=== PATIENT | male | born 1945 | race Caucasian/White ===

== ENCOUNTER 2022-05-08 14:02 | Emergency (ER) | payer MEDICARE, MEDICAID, SELFPAY ==
[2022-05-08 14:16] VITALS: BP 138/78; PULSE 118; RESP 18; TEMP 37.3; O2SAT 96
--- NOTE | 2022-05-08 14:47 | ED.GENADUL_ITS ---
Discharge Plan Disposition Patient Disposition: HOME Condition: Improving Discharge Details Clinical Impression: Lumbar strain Primary Care Provider: Michael Thibodeaux ED Provider: Preethi Serrano Home Meds and New Rx's Prescriptions: New methocarbamol 500 mg tablet 500 mg PO Q6H PRN (Reason: muscle spasm) Qty: 14 0RF prednisone 20 mg tablet See Rx Instructions .ROUTE .COMPLEX Qty: 18 0RF Rx Instructions: Take 3 tabs daily for 3 days, then 2 tabs daily for 3 days, then 1 tab daily for 3 days. Continued atorvastatin 10 mg tablet 1 tab PO DAILY Label Comments: TAKE ONE TABLET BY MOUTH EVERY DAY metoprolol tartrate 50 mg tablet 1 tab PO BID Label Comments: TAKE ONE TABLET BY MOUTH TWICE A DAY Eliquis 5 mg tablet 1 tab PO BID Label Comments: TAKE ONE TABLET BY MOUTH TWICE A DAY Discharge Instructions Instructions: Low Back Strain (ED) Additional Instructions: Your imaging today is reassuring and shows no evidence of acute concerning or significant findings. Your symptoms may be due to a muscle strain in your back. Alternate ice and heat to the affected area(s) several times daily for 20 minutes at a time. Take Tylenol every 4 hours as needed and directed for pain. Do not take NSAIDs such as motrin, ibuprofen, aleve or advil as these are contraindicated with your Eliquis due to increased risk of bleeding. Prescriptions for muscle relaxers and steroids have been sent electronically to your pharmacy. Take the oxycodone for pain not relieved with Tylenol or muscle relaxers. You have been placed on care management's list to arrange for a follow-up appointment with a primary care doctor to establish care and for re-evaluation. Return immediately to the emergency department if you develop any worsening or new concerning symptoms. Discharge Data Discharge Date/Time-TO BE ENTERED AT DEPARTURE: 05/08/22 17:21 Discharge Physician: Preethi Serrano Medical Decision Making 76yo male with a history of atrial fibrillation on Eliquis presents with right- sided lower back pain with radiation into his right buttock and right hip for the past 11 days after mechanical fall when he tripped over a vacuum commercial cleaner. States he also hit his right knee but denies any pain in this area. Patient appears uncomfortable but nontoxic. He has reproducible tenderness with range of motion but no evidence of overlying cellulitis, trauma or rash. He has no focal deficits and is neurovascularly intact. He denies cauda equina symptoms, fever or urinary symptoms so history and presentation does not appear consistent with cauda equina syndrome, epidural abscess or kidney stone. Considering patient's age and level of pain, will obtain imaging to rule out fracture versus disc herniation although discussed that MRI is the gold standard to rule out neurologic injury. Will give a dose of oral prednisone, Valium and oxycodone and reassess. Imaging reviewed and negative for acute findings. Patient reassessed and his pain is significantly improved and he feels comfortable going home. Prescriptions for steroids and muscle relaxers sent electronically to his pharmacy. He was given oxycodone to go for breakthrough pain. Advised to follow-up with the primary care doctor for reevaluation and for referral for physical therapy or MRI imaging if indicated. Usual and customary return precautions given prior to discharge. Medical Records Medical records reviewed: Yes I reviewed the patient's medical records. Imaging Data Radiologic Study: Radiologist's impression: CT LUMBAR SPINE WO CLINICAL HISTORY:? s/p fall, r/o acute fracture/disc herniation. ? TECHNIQUE:? Imaging Protocol: Axial computed tomography images with coronal and sagittal reformatted images were created and reviewed COMPARISON:? No exams were available for comparison? FINDINGS: Bones:? There are no fractures, listhesis, nor pars defects. There are no lytic osseous lesions evident.There is multilevel central spinal canal stenosis, most prominent at L4-5 level.? This is related to annular bulging, short AP dimension s of the pedicles and degenerative facet arthropathy at multiple levels. PARASPINAL SOFT TISSUES: There is a benign cyst in the left kidney noted.? Measures 4 cm.? No hematomas. IMPRESSION: 1. No acute lumbar spine fractures nor listhesis. 2. Multilevel spinal canal stenosis, most prominent at L4-5 level, as described above. CT PELVIC WO CLINICAL HISTORY: ? s/p fall, r/o acute fracture. ? TECHNIQUE:? Imaging Protocol: Axial computed tomography images with coronal and sagittal reformatted images were created and reviewed CONTRAST MATERIAL:? Intravenous: none Oral: None COMPARISON:? No exams were available for comparison FINDING:? PELVIS:? OSSEOUS: No pelvic nor hip fractures evident.Moderate degenerative changes in both hips. ANTERIOR ABDOMINAL WALL/GI:No evidence of significant anterior abdominal wall nor inguinal hernia in the pelvis evident.No obvious bowel obstruction.? No evidence of appendicitis.No evidence of acute sigmoid diverticulitis.No free fluid in the pelvis. LYMPH NODES: There is no intrapelvic nor inguinal adenopathy. URINARY BLADDER: No calculi nor obvious masses evident REPRODUCTIVE: Prostate gland mildly enlarged.? Seminal vesicles unremarkable..? IMPRESSION: 1. No pelvic nor hip fractures evident.? There are moderate degenerative changes evident in both hips. HPI General Mode of arrival: ambulatory . Date/Time Provider Initiated Documentation: 05/08/22 14:30 . Limitations to Documentation: no limitations . Information obtained by: patient . HPI Narrative: Patient is a 76-year-old male presents with right-sided lower back pain for the past 11 days after mechanical fall at home. Patient states he was walking quickly in the house when he tripped over a vacuum commercial cleaner and outstretched his right leg causing pain in his right knee and right lower back. He states since then his right knee pain has improved but has had worsening right lower back pain. He states the pain radiates from his right mid back down into his right buttock and right hip. He has taken Tylenol for pain without relief. He denies any bowel or bladder incontinence, saddle anesthesia or leg weakness or numbness. Related Data Home Medications Medication Instructions Recorded Confirmed apixaban 5 mg tablet (Eliquis) 1 tab PO BID 05/08/22 05/08/22 atorvastatin 10 mg tablet 1 tab PO DAILY 05/08/22 05/08/22 methocarbamol 500 mg tablet 500 mg PO Q6H PRN muscle spasm #14 05/08/22 tabs metoprolol tartrate 50 mg tablet 1 tab PO BID 05/08/22 05/08/22 prednisone 20 mg tablet See Rx Instructions .Route 05/08/22 .COMPLEX #18 tabs Previous Rx's Medication Instructions Recorded methocarbamol 500 mg tablet 500 mg PO Q6H PRN muscle spasm #14 05/08/22 tabs prednisone 20 mg tablet See Rx Instructions .Route 05/08/22 .COMPLEX #18 tabs Allergies Allergy/AdvReac Type Severity Reaction Status Date / Time No Known Allergies Allergy Unverified 05/08/22 14:20 General Stated Complaint: Nk/Back Pain GARY: 4 Review of Systems All systems reviewed & are unremarkable except as noted in HPI and below Constitutional Constitutional: Denies chills, Denies excessive sweating, Denies fatigue, Denies fever(s), Denies weakness and Denies weight loss Eyes Eyes: Reports system reviewed and no additional complaints, except as documented and Denies blurry vision ENT Ears, Nose, Mouth, and Throat: Denies vertigo, Denies dizziness, Denies otalgia, Denies nasal congestion, Denies sore throat and Denies throat swelling Cardiovascular Cardiovascular: Denies chest pain, Denies syncope, Denies rapid heart rate and Denies dyspnea Respiratory Respiratory: Denies chest congestion, Denies cough, Denies pain on inspiration and Denies dyspnea Gastrointestinal Gastrointestinal: Denies abdominal pain, Denies diarrhea and Denies vomiting Genitourinary Genitourinary: Denies hematuria, Denies dysuria and Denies flank pain Musculoskeletal Musculoskeletal: Reports back pain and Denies joint swelling Integumentary/Breasts Skin/Breast: Denies lesions and Denies rash Neurologic Neurologic: Denies behavioral changes, Denies confusion, Denies vertigo, Denies dizziness, Denies syncope, Denies localized weakness and Denies weakness Psychiatric Psychiatric: Denies behavioral changes, Denies confusion and Denies depression Endocrine Endocrine: Denies excessive sweating and Denies fatigue Hematologic/Lymphatic Hematologic/Lymphatic: Denies easy bruising and Denies lymphadenopathy Allergic/Immunologic Allergic/Immunologic: Denies throat swelling PFSH All Active Problems (Updated 05/08/22 @ 17:01 by Preethi Serrano DO) Lumbar strain (Acute) Medical History (Updated 05/08/22 @ 17:01 by Preethi Serrano DO) Atrial fibrillation Surgical History (Updated 05/08/22 @ 15:30 by Preethi Serrano DO) No significant past surgical history Social History Smoking/Tobacco Use Status: Never Smoking risk assessment performed?: Yes Alcohol Intake: never Drug use: Never Substance use type: does not use Do you feel safe at home: Yes Do you feel safe in your relationship?: Yes Exam Const General: cooperative Orientation: alert, awake and oriented x3 HENMT Head: normal to inspection Ears: hearing grossly normal bilaterally and external ears normal General nose exam: external nose normal Face and sinus: normal facial exam Mouth: oral mucosae normal Eyes General: appearance normal, both eyes and all related structures Eyelids: eyelids normal EOM: EOM intact bilaterally Neck Neck: normal visual inspection Lymphatic: no lymphadenopathy noted Chest Chest: normal inspection of the chest Resp Effort & Inspection: normal respiratory effort and able to speak in complete sentences Cardio Rate: tachycardic GI Inspection: normal to inspection Palpation: soft, not firm, no guarding, no hepatosplenomegaly, no masses and nontender Auscultation: normal bowel sounds Back/Spine/Pelvis Thoracic/Lumbar Spine: thoracic and lumbar spine normal to inspection, No paraspinal tenderness, No thoracic spinal tenderness and No lumbar spinal tenderness Skin General skin exam: no rashes or lesions noted Neuro General: patient alert, patient awake, moves all extremities, no meningeal signs and no focal motor deficits Cognition: normal cognition Speech: speech normal Gait: normal gait Motor: muscle tone normal throughout and strength 5/5 throughout Sensory Exam: no sensory deficits noted DTR's: Rt Patellar: 2+, Lt Patellar: 2+, Rt Ankle: 2+ and Lt Ankle: 2+ Plantar Reflexes: Equivocal: bilateral (negative babinski b/l ) Extrem General: normal to inspection, full ROM and capillary refill normal Other: B/L DP/PT pulses intact. Psych Appearance: grossly normal Mental Status: mental status grossly normal Speech and Movement: speech and movement normal Affect: normal affect Thought Process: normal Course Vital Signs Vital signs: Vital Signs Temperature 99.1 F 05/08/22 14:16 Pulse 118 H 05/08/22 14:16 Respiratory Rate 18 05/08/22 14:16 Blood Pressure 138/78 05/08/22 14:16 Pulse Oximetry 96 05/08/22 14:16 Temperature 99.1 F 05/08/22 14:16 Temperature Source Temporal Artery Scan 05/08/22 14:16 Pulse 118 H 05/08/22 14:16 Respiratory Rate 18 05/08/22 14:16 Respiratory Effort Non-Labored 05/08/22 14:21 Blood Pressure 138/78 05/08/22 14:16 Blood Pressure Position Sitting 05/08/22 14:16 Pulse Oximetry 96 05/08/22 14:16 Oxygen Delivery Method Room Air 05/08/22 14:16 Oxygen Flow Rate 0 05/08/22 14:16
--- NOTE | 2022-05-08 15:15 | DI.CT_ITS ---
Exam(s) CT LUMBAR SPINE WO EXAM: CT LUMBAR SPINE WO CLINICAL HISTORY: s/p fall, r/o acute fracture/disc herniation. TECHNIQUE: Imaging Protocol: Axial computed tomography images with coronal and sagittal reformatted images were created and reviewed COMPARISON: No exams were available for comparison FINDINGS: Bones: There are no fractures, listhesis, nor pars defects. There are no lytic osseous lesions evide nt.There is multilevel central spinal canal stenosis, most prominent at L4-5 level. This is related to annular bulging, short AP dimensions of the pedicles and degenerative facet arthropathy at multipl e levels. PARASPINAL SOFT TISSUES: There is a benign cyst in the left kidney noted. Measures 4 cm. No hematom as. IMPRESSION: 1. No acute lumbar spine fractures nor listhesis. 2. Multilevel spinal canal stenosis, most prominent at L4-5 level, as described above. 3. RADIATION DOSE DELIVERED: 634.98mGy.cm Total DLP DATA REPOSITORY: All CT scans at this facility are submitted to the National Radiology Data Registry (NRDR) Dose Index Registry (DIR) with the [employer] ([employer]). RADIATION OPTIMIZATION: All CT scans at this facility use at least one of these dose optimization te chniques: automated exposure control; mA and/or kV adjustment per patient size (includes targeted exa ms where dose is matched to clinical indication); or iterative reconstruction.
--- NOTE | 2022-05-08 15:15 | DI.CT_ITS ---
Exam(s) CT PELVIC WO EXAM: CT PELVIC WO CLINICAL HISTORY: s/p fall, r/o acute fracture. TECHNIQUE: Imaging Protocol: Axial computed tomography images with coronal and sagittal reformatted images were created and reviewed CONTRAST MATERIAL: Intravenous: none Oral: None COMPARISON: No exams were available for comparison FINDING: PELVIS: OSSEOUS: No pelvic nor hip fractures evident.Moderate degenerative changes in both hips. ANTERIOR ABDOMINAL WALL/GI:No evidence of significant anterior abdominal wall nor inguinal hernia in the pelvis evident.No obvious bowel obstruction. No evidence of appendicitis.No evidence of acute si gmoid diverticulitis.No free fluid in the pelvis. LYMPH NODES: There is no intrapelvic nor inguinal adenopathy. URINARY BLADDER: No calculi nor obvious masses evident REPRODUCTIVE: Prostate gland mildly enlarged. Seminal vesicles unremarkable.. IMPRESSION: 1. No pelvic nor hip fractures evident. There are moderate degenerative changes evident in both hips . 2. 3. RADIATION DOSE DELIVERED: 489.68mGy.cm Total DLP DATA REPOSITORY: All CT scans at this facility are submitted to the National Radiology Data Registry (NRDR) Dose Index Registry (DIR) with the [employer] (ACR). RADIATION OPTIMIZATION: All CT scans at this facility use at least one of these dose optimization te chniques: automated exposure control; mA and/or kV adjustment per patient size (includes targeted exa ms where dose is matched to clinical indication); or iterative reconstruction.
[2022-05-08] MEDS: diazePAM 5 MG TAB PO (15:40)
[2022-05-08] MEDS: predniSONE 20 MG TAB 60 MG PO (15:40)
[2022-05-08] MEDS: oxyCODONE 5 MG TAB PO (15:40)
--- NOTE | 2022-05-08 17:06 | NUR.NOTE ---
Nursing Note: PT INFO GIVEN TO CARE MANAGEMENT TO ESTABLISH CARE AND TO FOLLOW UP NEXT WEEK. KARTIK, ED
[2022-05-08 17:20] VITALS: PULSE 83; RESP 16; O2SAT 97
== END 2022-05-08 17:21 | disposition home or self-care (01) ==
PROVIDERS: Emergency Provider Physician Assistant; PCP Family Medicine
DX: S39.012A Strain of muscle, fascia and tendon of lower back, initial encounter (principal); W18.09XA Striking against other object with subsequent fall, initial encounter
CPT/HCPCS: 99284; 72131; 72192; 99283; J7512

== ENCOUNTER 2023-01-01 10:06 | Outpatient (CLI) | payer MEDICARE, MEDICAID, SELFPAY | END 2023-01-01 10:07 | disposition home or self-care (01) | PROVIDERS: PCP Student in an Organized Health Care Education/Training Program; Visit Provider Student in an Organized Health Care Education/Training Program | DX: I48.91 Unspecified atrial fibrillation (principal) | CPT/HCPCS: 93246 ==

== ENCOUNTER 2023-01-26 09:03 | Outpatient (CLI) | payer MEDICARE, MEDICAID, SELFPAY ==
--- NOTE | 2023-01-26 09:22 | W.CARDEVENT ---
Date of service: 01/26/23 Time of Service: 09:22 Cardiac Event Recorder Referring Provider:: Arti Paiz Indications:: Atrial fibrillation Cardiac Event Note: This is a 14-day cardiac event monitor ordered for atrial fibrillation atrial fibrillation was present throughout with an average heart rate of 72. Minimum was 45, maximum 111 There were very rare ventricular ectopic beats No patient symptoms were reported
== END 2023-01-26 09:04 | disposition home or self-care (01) ==
LOC: CARDOPNVT 09:03
PROVIDERS: PCP Student in an Organized Health Care Education/Training Program; Visit Provider Internal Medicine Cardiovascular Disease
DX: I48.91 Unspecified atrial fibrillation (principal)
CPT/HCPCS: 93248

== ENCOUNTER 2023-01-26 09:24 | Outpatient (CLI) | payer MEDICARE, MEDICAID, SELFPAY ==
--- NOTE | 2023-01-26 09:15 | RT.EKG_ITS ---
APPROVED REPORT Exam: Resting ECG Reason for Exam: afib Patient Location: O HR:66 bpm ECG Measurements Heart Rate 66 AXIS SC [id number] P [id number] QRSd 104 QRS 41 QT 421 T 48 QTc 442 Conclusion Atrial fibrillation...V-rate 46- 82, irreg A-activity
== END 2023-01-26 09:25 | disposition home or self-care (01) ==
LOC: DI.CARD 09:25
PROVIDERS: PCP Student in an Organized Health Care Education/Training Program; Visit Provider Internal Medicine Cardiovascular Disease
DX: I48.91 Unspecified atrial fibrillation (principal)
CPT/HCPCS: 93010

== ENCOUNTER → 2023-01-26 11:09 | Outpatient (BNVA) | payer MEDICARE, MEDICAID, SELFPAY | PROVIDERS: PCP Student in an Organized Health Care Education/Training Program; Referring Provider Student in an Organized Health Care Education/Training Program; Visit Provider Internal Medicine Cardiovascular Disease | DX: Z79.01 Long term (current) use of anticoagulants (principal); I10 Essential (primary) hypertension; I48.91 Unspecified atrial fibrillation | CPT/HCPCS: 93005; 99202; 99213 ==

== ENCOUNTER 2024-01-01 02:58 | Outpatient (CLI) | payer MEDICARE, MEDICAID, SELFPAY ==
[2024-01-01 11:33] LABS: Anion Gap 8.6 mmol/L (3-11); BUN 18 mg/dL (7-18); CO2 30.4 mmol/L (21.0-32.0); CREATININE 1.3 mg/dL (0.70-1.30); Calcium 9.1 mg/dL (8.5-10.1); Calculated LDL 46 mg/dL (<100); Chloride 102 mmol/L (98-107); Cholesterol 112 mg/dL (<200); Estimated GFR 56.23 (mL/min/1.73m2); Glucose 199 mg/dL (74-106); HDL Cholesterol 52 mg/dL (40-60); Potassium 3.8 mmol/L (3.5-5.1); Sodium 141 mmol/L (136-145); Triglyceride 70 mg/dL (<150)
== END 2024-01-01 02:59 | disposition home or self-care (01) ==
LOC: LBO 02:59
PROVIDERS: PCP Student in an Organized Health Care Education/Training Program; Referring Provider Student in an Organized Health Care Education/Training Program; Visit Provider Student in an Organized Health Care Education/Training Program
DX: E78.5 Hyperlipidemia, unspecified; I67.9 Cerebrovascular disease, unspecified; I10 Essential (primary) hypertension
CPT/HCPCS: 36415; 80048; 80061

== ENCOUNTER → 2024-01-06 00:55 | Outpatient (CLI) | payer MEDICARE, MEDICAID, SELFPAY ==
--- NOTE | 2024-01-06 08:15 | DI.US_ITS ---
Exam(s) US THYROID EXAM: US THYROID CLINICAL HISTORY: 3.5 x 3.4 x 3.1 cm TR 5 lesion, assess for changelt thyroid nodule,e04.1. TECHNIQUE: Ultrasound thyroid performed using standard protocol. COMPARISON: US US THYROID/NECK from 03/09/2023 a [facility] FINDINGS: ISTHMUS: mm RIGHT LOBE: Size: 4.0 x 1.6 x 1.5 cm Echogenicity: Normal. Vascularity: Normal. Nodules: None. LEFT LOBE: Size: 5.6 x 3.2 x 3.1 cm Echogenicity: Normal. Vascularity: Normal. Nodules: 3.5 x 2.6 x 3.0 centimeter solid mildly hyperechoic, ill-defined margins, taller than wide w ith punctate echogenic foci, TR 5. Nodules measuring smaller than on the prior exam however this is l ikely secondary to measurement error. OTHER FINDINGS: None. IMPRESSION: Stable size and appearance left thyroid nodule. TR 5. DATA REPOSITORY:
== END ==
PROVIDERS: PCP Student in an Organized Health Care Education/Training Program; Visit Provider Otolaryngology
DX: E04.1 Nontoxic single thyroid nodule (principal)
CPT/HCPCS: 76536

== ENCOUNTER → 2024-01-25 12:38 | Outpatient (BNVA) | payer MEDICARE, MEDICAID, SELFPAY | PROVIDERS: PCP Student in an Organized Health Care Education/Training Program; Referring Provider Student in an Organized Health Care Education/Training Program; Visit Provider Internal Medicine Cardiovascular Disease | DX: I48.21 Permanent atrial fibrillation (principal) | CPT/HCPCS: 99213 ==

== ENCOUNTER 2024-02-15 13:31 | Emergency (ER) | payer MEDICARE, MEDICAID, SELFPAY ==
[2024-02-15 14:13] VITALS: BP 142/85; PULSE 97; RESP 16; TEMP 36.4; O2SAT 99
--- NOTE | 2024-02-15 14:47 | W.ED.GENAD ---
Discharge Plan Disposition Patient Disposition: Home Condition: Stable Discharge Details Clinical Impression: Walking pneumonia Primary Care Provider: Arti Paiz ED Provider: Christo Hart Home Meds and New Rx's Prescriptions: New azithromycin 250 mg tablet See Rx Instructions .ROUTE .COMPLEX Qty: 6 0RF Rx Instructions: For 250 mg dose pack: take 500 mg today (day 1), then 250 mg for 4 days (days 2-5) albuterol sulfate 90 mcg/actuation HFA aerosol inhaler 2 puff inhalation QID PRNQty: 6.7 0RF Continued Eliquis 5 mg tablet 5 mg PO BID Qty: 180 3RF atorvastatin 10 mg tablet 10 mg PO DAILY Qty: 90 3RF metoprolol tartrate 25 mg tablet 25 mg PO BID Qty: 180 3RF Rx Instructions: Reduced dose due to orthostatic hypotn (Nov 20) ketoconazole 2 % cream 1 applic topical DAILY cetirizine [Zyrtec] 10 mg tablet 10 mg PO DAILY PRN Discharge Instructions Instructions: Albuterol (By breathing), Azithromycin (By mouth), Upper Respiratory Infection (ED) Additional Instructions: You were seen in the emergency department for your upper respiratory infection with prolonged cough, this may be a subacute pneumonia or aspiration from your prior possible aspiration of food or coffee. Please take the prescribed azithromycin as well as use the inhaler as needed for cough prevention. Use an amja-rho-gcquive cough medicine like Mucinex. Please use therapeutic dosing of Tylenol (acetamenophen) & Advil (ibuprofen) in an alternating fashion as follows: Take 1000mg of Tylenol every 6 hours without missing doses- that is 4 times per day. [place] in between the Tylenol dosings, take 400-600mg of Advil also on a 6 hour schedule, that is also 4 times per day. The daily maximum dosing of Tylenol is 4000mg, and the daily maximum dosing of Advil is 2400mg. This is safe to do for weeks. Please note that some common cold medications & prescription pain medications may contain acetamenophen and you need to read OTC drug labels and factor that in to maximum daily dosings. Please return to the ER for any severe increase in respiratory distress, developing fever, shortness of breath. Referrals: Arti Paiz DO [Primary Care Provider] - Discharge Data Discharge Date/Time-TO BE ENTERED AT DEPARTURE: 04/15/24 15:52 HPI General Date/Time Provider Initiated Documentation: 02/15/24 14:24. HPI Narrative: 78 year-old male presents to ED today by POV/ambulating with a chief complaint of chronic cough with onset two months ago, states he was not able to see his primary care for couple weeks and wanted to present to the ED, he does not mention any of the other complaints noted in triage to provider. Quality described as generalized cough, spontaneous partial remission, no radiation to fever, chest pain, shortness of breath, endorses some pain in L neck intermittently. Severity is described as mild to moderate. Palliating factors include nothing specific. Provoking factors include nothing specific. Patient denies smoking history. Patient not anticoagulated. Related Data Home Medications Medication Instructions Recorded Confirmed cetirizine 10 mg tablet (Zyrtec) 10 mg PO DAILY PRN 08/20/22 02/15/24 ketoconazole 2 % topical cream 1 applic topical DAILY 08/20/22 02/15/24 apixaban 5 mg tablet (Eliquis) 5 mg PO BID #180 tabs 12/23/23 02/15/24 atorvastatin 10 mg tablet 10 mg PO DAILY #90 tabs 12/23/23 02/15/24 metoprolol tartrate 25 mg tablet 25 mg PO BID #180 tabs 12/23/23 02/15/24 albuterol sulfate 90 mcg/actuation 2 puff inhalation QID PRN #6.7 02/15/24 aerosol inhaler grams azithromycin 250 mg tablet See Rx Instructions PO .COMPLEX #6 02/15/24 tabs Previous Rx's Medication Instructions Recorded apixaban 5 mg tablet (Eliquis) 5 mg PO BID #180 tabs 12/23/23 atorvastatin 10 mg tablet 10 mg PO DAILY #90 tabs 12/23/23 metoprolol tartrate 25 mg tablet 25 mg PO BID #180 tabs 12/23/23 albuterol sulfate 90 mcg/actuation 2 puff inhalation QID PRN #6.7 02/15/24 aerosol inhaler grams azithromycin 250 mg tablet See Rx Instructions PO .COMPLEX #6 02/15/24 tabs Allergies Allergy/AdvReac Type Severity Reaction Status Date / Time house dust Allergy Unknown congestion Verified 02/15/24 14:12 Chlorpheniramine-Phenylpropan Allergy Unknown unknown Uncoded 02/15/24 14:12 Environmental Allergy Unknown congestion Uncoded 02/15/24 14:12 Hay Fever Allergy Unknown unknown Uncoded 02/15/24 14:12 Mold Allergy Unknown congestion Uncoded 02/15/24 14:12 General Stated Complaint: Orthopedic GARY: 4 Review of Systems All systems reviewed & are unremarkable except as noted in HPI and below Exam Narrative Exam Narrative: GENERAL APPEARANCE: Well-nourished, non-toxic, awake and alert, atraumatic, no acute distress. SKIN: Warm, pink, dry, intact, without rashes/lesions/ulcerations. HEAD: Normocephalic, atraumatic, normal hair distribution for gender/age. EYES: Pupils PERRLA, EOMs intact without nystagmus, normal conjunctiva, no exudates on lids/lashes. ENT: Nares patent, no circumoral cyanosis, no facial swelling NECK: Supple, trachea midline, painless cervical ROM. LUNGS/CHEST: Lungs CTA bilaterally- no rhonchi/rales/wheezes diffusely, non-labored respirations, normal A/P diameter, symmetrical expansion, no chest wall deformity HEART (CV/PV): Regular rate and rhythm without murmur, no peripheral edema, no JVD. ABDOMEN: Soft, non-distended, no guarding. MSK: Normal ROM, no swelling/deformity to bilateral UEs or LEs, moving all extremities without weakness, no cyanosis, spine midline without tenderness, normal curvature. NEURO: Mental Status AAOx4 - alert to person, place, time, events No facial droop, no forehead involvement. Motor: No focal weakness - strength 5/5 in bilateral UEs and LEs, proximal and distal, symmetric. Sensory: sensation intact to light touch globally. Gait normal: patient ambulated without ataxia into ED room. PSYCH: euthymic, cooperative, pleasant, appropriate speech Course Vital Signs Vital signs: Vital Signs Temperature 36.4 C L 02/15/24 14:13 Pulse 97 H 02/15/24 14:13 Respiratory Rate 16 02/15/24 14:13 Blood Pressure 142/85 H 02/15/24 14:13 Pulse Oximetry 99 02/15/24 14:13 Temperature 36.4 C L 02/15/24 14:13 Temperature Source Temporal Artery Scan 02/15/24 14:13 Pulse 97 H 02/15/24 14:13 Respiratory Rate 16 02/15/24 14:13 Respiratory Effort Normal, Non-Labored 02/15/24 14:15 Blood Pressure 142/85 H 02/15/24 14:13 Blood Pressure Position Sitting 02/15/24 14:13 Pulse Oximetry 99 02/15/24 14:13 Oxygen Delivery Method Room Air 02/15/24 14:13 Oxygen Flow Rate 0 02/15/24 14:13 Pain Level 5 02/15/24 14:13 Medical Decision Making This dictation utilizes [id number] dictation software and may contain unedited grammatical errors. 78 y/o M presents to ED today with a chief complaint of chronic cough for 2 months, denies other complaints to provider- has not been evaluated by PCP for this- no acute distress, denies fever, denies shortness of breath, denies chest pain. Patients' medical history: Noncontributory. Family and social history: Noncontributory. Pertinent exam findings / vital signs include lungs CTA, nontoxic vitals, neuro intact, benign abdomen. Differential / pathologies of concern include chronic cough, atypical pneumonia, obstructive or restrictive lung disease. Diagnostic studies of: -Chest x-ray-no focal pneumonia. Interventions of: -Trial of azithromycin due to duration of patient's symptoms, recommend he follow-up with PCP for PFTs should he not improve. ED Course/Assessment/Plan: 78-year-old male presents to the ED with a chronic cough for 2 months, denies having been evaluated by PCP, I did trial empiric 5-day course of azithromycin for an atypical walking pneumonia but I recommend he follow-up with his primary care provider should this not improve his condition as he may need pulmonary function testing for underlying cause of his chronic cough. He denied any other complaints to provider. Strict return criteria for any respiratory distress. Findings not consistent with toxic illness, respiratory distress, wheezing, asthma. Disposition of Walking Pneumonia. Patient verbalized understanding of the plan and return to ED criteria and engaged in shared decision making. Medical Records Medical records reviewed: Yes I reviewed the patient's medical records. Imaging Data Radiologic Study: Attestation: I personally reviewed and interpreted this imaging study as follows: Imaging: X-Ray Radiologist's impression: EXAM: XR CHEST 2V PA LATERAL CLINICAL HISTORY: cough, 2 months TECHNIQUE: 2D digital imaging was performed. Two views. COMPARISON: CR CHEST 2 VIEWS PA,LAT from 07/03/2009 FINDINGS: HEART: Normal size. Aorta: Not dilated. PULMONARY VASCULATURE: Normal. LUNGS: Calcified granuloma left upper lobe, otherwise clear. PLEURAL SPACE: No pleural effusion or pneumothorax. BONE:Flowing osteophytes in the thoracic spine. Soft tissues: Unremarkable. IMPRESSION: No acute abnormality. Lab Data Lab results reviewed: Yes I reviewed the patient's lab results. Quality:SDOH Health Related Social Needs: No Data to Display PFSH All Active Problems (Updated 02/15/24 @ 15:36 by ERIK Jameson) Walking pneumonia (Acute) Nodule of left lobe of thyroid gland (Acute) TR5 highly suspicious per FNA (03/09/23) .. [ ] Tx Plan? (Dr. Barton) Irritation of both eyes (Acute) Atrial fibrillation (Chronic) Recent Card review ID @ colonoscopy, ~ 2 yrs ago .. Cardio [ ] Considering Ablation [ ] Multiple thyroid nodules (Acute) Two nodes, LFT Lobe, but (1) TR5, highly suspicious, per FNA (03/09/23), Tx Plan [ ] (Dr. Barton?) .. [address] (Aug 2021), US (08/20/21), US/FNA (09/04/21) .. @ [facility] Multinodular goiter (nontoxic) (Acute) (1) highly suspicious per 03/2023 FNA.. 90% benign per Endo, 03/2022, Dr. Barton ([facility] [place]. 2' CT Neck 03/09/23-thyroid US [facility] [place]-highly suspicious L thyroid lobe nodule Blurry vision, left eye (Acute) 2' myopic shift 2' cataract per Ophtho, [facility] [place] Cataract (Chronic) left eye [facility] Ophtho Hyperlipidemia (Acute) Itching (Acute) Small vessel disease, cerebrovascular (Acute) Cerebrovascular disease (Acute) IFG (impaired fasting glucose) (Acute) Hypertension (Chronic) Depression (Chronic) Anxiety (Chronic) Medical History Glaucoma (~2010) Serous retinal detachment s/p iridectomy, ~ 2009 Adenomatous polyp of colon Colonoscopy-2014 Colonoscopy-2019 Surgical History History of tonsillectomy and adenoidectomy S/P iridectomy (~2009) Retinal detachment (~2009) H/O laser iridotomy (~2009) H/O colonoscopy (~08/2015) H/O colonoscopy (~09/2020) Family History Father Stroke Mother Stroke Social History (Updated 01/25/24 @ 13:05 by Rachel Lacy RN) Smoking/Tobacco Use Status: Never Second Hand Exposure: No Smoking risk assessment performed?: Yes Alcohol Intake: never Drug use: Never Substance use type: does not use Adopted: No Caregiver/Support person: No Foster care: No Household members: friend(s) Housing: house Number of Children: 0 Communication Needs: Hard of Hearing Education Level: high school Do you need help understanding health information?: Often current occupation: Retired Pets and animals: Yes Pets and animals: cat(s) and dog(s) Sexually active: No Do you think of yourself as: straight/heterosexual Current gender identity: male What is your relationship status?: never How often do you talk on the phone with friends or family?: twice per week How often do you get together with friends or relatives?: once per week Do you belong to any clubs or organized social groups?: yes Panel score (0-1 are the most socially isolated patients): 2 Toyin/Druze: None Special toyin needs: No Seatbelt use: always Helmet use: No Drive intox or ride w/intox driver wheelchair: No Do you feel safe at home: Yes Do you feel safe in your relationship?: Yes
--- NOTE | 2024-02-15 15:43 | DI.RAD_ITS ---
Exam(s) XR CHEST 2V PA LATERAL EXAM: XR CHEST 2V PA LATERAL CLINICAL HISTORY: cough, 2 months TECHNIQUE: 2D digital imaging was performed. Two views. COMPARISON: CR CHEST 2 VIEWS PA,LAT from 07/03/2009 FINDINGS: HEART: Normal size. Aorta: Not dilated. PULMONARY VASCULATURE: Normal. LUNGS: Calcified granuloma left upper lobe, otherwise clear. PLEURAL SPACE: No pleural effusion or pneumothorax. BONE:Flowing osteophytes in the thoracic spine. Soft tissues: Unremarkable. IMPRESSION: No acute abnormality. DATA REPOSITORY: RADIATION DOSE DELIVERED:
--- NOTE | 2024-02-17 07:22 | NUR.NOTE ---
Accessed pt chart to reconcile EKG orders with EKG?s in [facility]. Order cancelled due to no EKG done. Nursing Note:
== END 2024-02-15 15:52 | disposition home or self-care (01) ==
PROVIDERS: Emergency Provider Physician Assistant; PCP Student in an Organized Health Care Education/Training Program
DX: J18.8 Other pneumonia, unspecified organism (principal); I48.91 Unspecified atrial fibrillation; I10 Essential (primary) hypertension; Z79.01 Long term (current) use of anticoagulants; Z79.82 Long term (current) use of aspirin
CPT/HCPCS: 99283; 71046

== ENCOUNTER 2024-04-07 14:51 | Outpatient (CLI) | payer MEDICARE, MEDICAID, SELFPAY ==
[2024-04-11 12:40] LABS: Ro60 Ab, IgG <7.0 CU (<20.0); SS-A/Ro, IgG <2.3 CU (<20.0); SS-B (La) Ab, IgG <3.3 CU (<20.0)
== END 2024-04-07 14:52 | disposition home or self-care (01) ==
LOC: LBO 14:52
PROVIDERS: Registered Nurse Maternal Newborn; PCP Student in an Organized Health Care Education/Training Program; Visit Provider Otolaryngology
DX: R68.2 Dry mouth, unspecified (principal)
CPT/HCPCS: 36415; 86235

== ENCOUNTER 2024-04-18 13:42 | Outpatient (CLI) | payer MEDICARE, SELFPAY ==
[2024-04-18 13:07] LABS: Hemoglobin A1C 11.9 % (<5.7)
[2024-04-18 13:40] LABS: TSH (W/Ref FT4) 1.38 uIU/mL (0.36-3.74)
== END 2024-04-18 13:43 | disposition home or self-care (01) ==
LOC: LBO 13:42
PROVIDERS: Otolaryngology; PCP Student in an Organized Health Care Education/Training Program; Visit Provider Physician Assistant
DX: R73.9 Hyperglycemia, unspecified (principal); K11.7 Disturbances of salivary secretion; E04.1 Nontoxic single thyroid nodule
CPT/HCPCS: 36415; 83036; 84443

== ENCOUNTER 2024-05-03 03:42 | Outpatient (CLI) | payer MEDICARE, SELFPAY ==
--- NOTE | 2024-05-03 13:09 | W.NUTRFU ---
Date of service: 05/03/24 Time of Service: 13:00 Nutrition Note NOTE: Ramirez comes in for referred nutrition visit regarding new dx of diabetes (a1c of 13 on 04/22/24). Ramirez has also experienced some unintentional weight loss which he believes is a result of his throat and mouth discomfort and altered tasted since developing thrush. He states his usual body weight is about 20 lbs heavier than his current weight of ~169lbs. He feels his mouth/throat symptoms are worse today even after using nystatin swish and swallow as prescribed. He states he was raised with 1 big meal (supper) while growing up and finds it hard to deviate from this habit - eating earlier feels difficult. He states he doesn't eat a lot of meat but will cook a large amount if on sale and carve it up to use/freeze. He just cooked a 14lb turkey and sliced some for sandwiches and meals and froze the rest. He relates he lives with maribell whom is his live-in and has been with him for 40years (the way he speaks, he is not having a good time in this relationship currently) and she does all the cooking and food prep and he states she usually tries to keep things healthy. He says he never has sweets or sugary bevs - father was a doctor and never let them have these. Reviewed general diet history and his usual patterns and find his usual diet to be low in fiber and protein most days, suspect mostly due to limited eating frequency not allowing for consistent intake of these macros. Would suspect also some micronutrient insufficiencies due to lack of supplementation and inconsistent eating patterns - cameron recommend checking vitamin D and B12 as he doesn't consume animal products consistently and does not take vitamin D. He complains of chronic diarrhea x at least the last 2 weeks and take immodium. We reviewed his estimated energy needs and discussed menu planning. We discussed the importance of eating at least 3 times a day with 0-2 planned snacks as a goal. We reviewed the importance of keeping added sugars low (<25g most days) and building up fiber as diarrhea becomes manageable to at least 30grams per day. We used education materials to review carb foods vs non-carb foods and how to estimate 15g serving sizes to count. Encouraged being proactive and also offered CGM placement - not interested in it at this time. Recommended ground flax seeds added to yogurt for help with diarrhea and also suggested and gave samples of banatrol to mix with water 1-3 times daily. Ramirez felt more confident in his meal planning and will hopefully work with maribell at home to incorporate goals we discussed today regarding CHO, added sugar, fiber and protein intake. Referral requested multiple appts with pt and I will call Ramirez to work some follow up visits in Time Spent in Nutritional Counseling and Treatment: 45 min
== END 2024-05-03 03:43 | disposition home or self-care (01) ==
PROVIDERS: PCP Student in an Organized Health Care Education/Training Program; Visit Provider Dietitian, Registered
DX: E11.9 Type 2 diabetes mellitus without complications (principal); Z71.3 Dietary counseling and surveillance
CPT/HCPCS: 00123; 97802

== ENCOUNTER 2024-05-04 14:53 | Outpatient (CLI) | payer MEDICARE, SELFPAY ==
[2024-05-04 15:13] LABS: Abs Immature Grans 0.02 10^3/uL (0.0-0.06); Absolute Basophil Count 0.05 10^3/uL (0.0-0.2); Absolute Eosinophil Count 0.68 10^3/uL (0.0-0.7); Absolute Lymphocyte Count 1.21 10^3/uL (1.2-3.4); Absolute Monocyte Count 0.57 10^3/uL (0.1-0.8); Absolute Neutrophil Count 3.53 10^3/uL (1.2-6.7); Basophils % 0.8 %; Eosinophils % 11.2 %; HCT 41.6 % (40.0-50.0); HGB 13.9 g/dL (13.5-17.5); Immature Grans % 0.3 %; MCH 31.6 pg (27.0-33.0); MCHC 33.4 % (32.0-36.0); MCV 95 fL (80-95); MPV 10.7 fL (8.0-11.0); Monocytes % 9.4 %; Neutrophils % 58.3 %; Platelet Count 152 10^3/uL (130-400); RDW 13.7 % (11.8-14.1); RDW-SD 47.9 fL; WBC 6.06 10^3/uL (4.4-10.8)
[2024-05-04 15:57] LABS: Anion Gap 6.9 mmol/L (3-11); BUN 14 mg/dL (7-18); CO2 27.1 mmol/L (21.0-32.0); Calcium 8.5 mg/dL (8.5-10.1); Chloride 103 mmol/L (98-107); Estimated GFR 77.04 (mL/min/1.73m2); Glucose 306 mg/dL (74-106); Magnesium 1.9 mg/dL (1.8-2.4); Potassium 4.2 mmol/L (3.5-5.1); Sodium 137 mmol/L (136-145)
== END 2024-05-04 14:54 | disposition home or self-care (01) ==
LOC: LBO 14:53
PROVIDERS: PCP Student in an Organized Health Care Education/Training Program; Visit Provider Student in an Organized Health Care Education/Training Program
DX: I10 Essential (primary) hypertension (principal); R19.7 Diarrhea, unspecified; R63.4 Abnormal weight loss; Z91.89 Other specified personal risk factors, not elsewhere classified
CPT/HCPCS: 36415; 80048; 83735; 85025

== ENCOUNTER 2024-06-24 17:08 | Outpatient (REF) | payer MEDICARE, SELFPAY | END 2024-06-24 17:09 | disposition home or self-care (01) | LOC: LBN 17:08 | PROVIDERS: PCP Student in an Organized Health Care Education/Training Program; Visit Provider Student in an Organized Health Care Education/Training Program | DX: R19.7 Diarrhea, unspecified (principal); R63.4 Abnormal weight loss | CPT/HCPCS: 87046; 87077; 87493 ==

== ENCOUNTER 2024-10-07 14:56 | Outpatient (CLI) | payer MEDICARE, MEDICAID, SELFPAY ==
--- NOTE | 2024-10-07 11:30 | DI.RAD_ITS ---
Exam(s) XR LUMBAR SPINE COMP W FLEX/EX EXAM: XR LUMBAR SPINE COMP W FLEX/EX CLINICAL HISTORY: re-evaluate spinal stenosis M48.061 LUMBAR REGION. TECHNIQUE: 2D digital imaging was performed. Five views. COMPARISON: No exams were available for comparison FINDINGS: Exam is limited by overlying bowel gas. BONES: No fracture or destructive lesion. Vertebral body heights are maintained. Facet degenerativ e changes are present, greatest L4-5 and L5-S1. DISKS: Anterior bridging osteophytes noted at T12-L1 and L1-2. Mild narrowing of the L 2 3 and L3-4 disc spaces with small endplate osteophytes. Mild disc space narrowing at L5-S1 moderate osteophytes . ALIGNMENT: Lumbar spinal alignment is within normal limits. SOFT TISSUE: Normal. IMPRESSION: Degenerative disc changes and facet degenerative changes, greatest at L5-S1. DATA REPOSITORY: RADIATION DOSE DELIVERED:
== END 2024-10-07 15:16 ==
PROVIDERS: PCP Student in an Organized Health Care Education/Training Program; Visit Provider Student in an Organized Health Care Education/Training Program
DX: M48.061 Spinal stenosis, lumbar region without neurogenic claudication (principal)
CPT/HCPCS: 36415; 72114; 80048; 82784; 83516; 83735; 83789; 85025

== ENCOUNTER 2024-10-07 15:16 | Outpatient (CLI) | payer MEDICARE, SELFPAY ==
[2024-10-07 13:03] LABS: Abs Immature Grans 0.02 10^3/uL (0.0-0.06); Absolute Eosinophil Count 0.36 10^3/uL (0.0-0.7); Absolute Lymphocyte Count 1.19 10^3/uL (1.2-3.4); Absolute Monocyte Count 0.61 10^3/uL (0.1-0.8); Absolute Neutrophil Count 4.27 10^3/uL (1.2-6.7); Basophils % 1.5 %; Eosinophils % 5.5 %; HCT 44.2 % (40.0-50.0); HGB 14.4 g/dL (13.5-17.5); Immature Grans % 0.3 %; Lymphocytes % 18.2 %; MCH 32.1 pg (27.0-33.0); MCHC 32.6 % (32.0-36.0); MCV 98 fL (80-95); MPV 10.5 fL (8.0-11.0); Monocytes % 9.3 %; Neutrophils % 65.2 %; Platelet Count 151 10^3/uL (130-400); RBC 4.49 10^6/uL (4.36-5.78); RDW 12.6 % (11.8-14.1); RDW-SD 45.2 fL; WBC 6.55 10^3/uL (4.4-10.8)
[2024-10-07 13:31] LABS: Anion Gap 8.6 mmol/L (3-11); BUN 14 mg/dL (7-18); CO2 29.4 mmol/L (21.0-32.0); CREATININE 1.1 mg/dL (0.70-1.30); Calcium 8.5 mg/dL (8.5-10.1); Chloride 104 mmol/L (98-107); Estimated GFR 68.29 (mL/min/1.73m2); Glucose 110 mg/dL (74-106); Magnesium 2.4 mg/dL (1.8-2.4); Potassium 4.1 mmol/L (3.5-5.1); Sodium 142 mmol/L (136-145)
[2024-10-10 11:56] LABS: IgA 112 mg/dL (85-499); Interpretation (See Note); Tissue Transglutaminase IgA <4.0 CU (<20.0)
[2024-10-11 13:46] LABS: Total Chenodeoxycholic acid 5.44 nmol/mL (<=6.00); Total Deoxycholic acid <0.07 nmol/mL (<=6.00); Total Ursodeoxycholic acid 0.25 nmol/mL (<=2.00)
== END 2024-10-07 15:17 | disposition home or self-care (01) ==
LOC: LBO 15:17
PROVIDERS: PCP Student in an Organized Health Care Education/Training Program; Visit Provider Student in an Organized Health Care Education/Training Program
DX: K90.9 Intestinal malabsorption, unspecified (principal); R19.7 Diarrhea, unspecified; R15.9 Full incontinence of feces; I10 Essential (primary) hypertension; Z91.89 Other specified personal risk factors, not elsewhere classified
CPT/HCPCS: 36415; 80048; 82784; 83516; 83735; 83789; 85025

== ENCOUNTER 2024-10-19 15:05 | Outpatient (REF) | payer MEDICARE, MEDICAID, SELFPAY ==
[2024-10-24 17:39] LABS: Calprotectin <50.0 mcg/g
== END 2024-10-19 15:06 | disposition home or self-care (01) ==
LOC: LBN 15:05
PROVIDERS: PCP Student in an Organized Health Care Education/Training Program; Visit Provider Student in an Organized Health Care Education/Training Program
DX: K90.9 Intestinal malabsorption, unspecified (principal); R15.9 Full incontinence of feces
CPT/HCPCS: 83993; 87177

== ENCOUNTER 2025-01-05 01:38 | Outpatient (CLI) | payer MEDICARE, MEDICAID, SELFPAY ==
--- NOTE | 2025-01-05 08:00 | DI.US_ITS ---
Exam(s) US THYROID EXAM: US THYROID CLINICAL HISTORY: TR 5 lesion, stable by previous ultrasound, assess f/u,e04.2,multinodular. TECHNIQUE: Ultrasound thyroid performed using standard protocol. COMPARISON: US US THYROID from 01/06/2024 FINDINGS: RIGHT THYROID LOBE: Measures 2.2 cm AP x 1.4 cm wide x 0.6 cm craniocaudal There are no nodules in the right lobe. ISTHMUS: Normal thickness. There are no nodules in the isthmus. LEFT THYROID LOBE: Measures 3.4 cm AP x 2.3 wide x 5.8 cm craniocaudal Again noted is a solitary solid nodule in the left lobe This nodule presently measures 3.4 x 2.1 x 3.4 cm, similar to previous Characteristics of this nodule are as follows: Composition: Solid-2 points Echogenicity: Isoechoic-1 points Shape: Wider than taller in the transverse plane-0 points Margin: Smooth-0 points Echogenic Foci: Contains punctate echogenic foci-3 points Total points for this nodule: 6 ACR Ti-Rads Category: 4 This TR 4 level nodule should undergo ultrasound-guided FNA as it measures greater than 1.5 cm LYMPH NODES: There is no significant adenopathy. IMPRESSION: 1. Again noted is a solitary solid nodule in the left thyroid lobe which exhibits minimal if any sign ificant growth when compared to the prior ultrasound examination of 1 year ago. Nevertheless, it is a TR 4 level nodule that measures significantly greater than 1.5 cm and therefore should undergo ultr asound-guided FNA. 2. There are no nodules in the right thyroid lobe nor within the isthmus. 3. There is no significant lymphadenopathy. DATA REPOSITORY:
== END 2025-01-05 01:58 ==
PROVIDERS: PCP Family Medicine; Visit Provider Otolaryngology
DX: E04.2 Nontoxic multinodular goiter (principal)
CPT/HCPCS: 76536

== ENCOUNTER → 2025-01-19 10:32 | Outpatient (BNVA) | payer MEDICARE, SELFPAY | PROVIDERS: PCP Family Medicine; Referring Provider Student in an Organized Health Care Education/Training Program; Visit Provider Physical Therapy Assistant | DX: Z12.11 Encounter for screening for malignant neoplasm of colon (principal); Z86.0101 Personal history of adenomatous and serrated colon polyps ==

== ENCOUNTER 2025-01-23 08:07 | Outpatient (CLI) | payer MEDICARE, SELFPAY | END 2025-01-23 08:08 | disposition home or self-care (01) | LOC: DI.CARD 08:08 | PROVIDERS: PCP Family Medicine; Visit Provider Registered Nurse | CPT/HCPCS: 93010 ==

== ENCOUNTER 2025-01-25 08:19 | Outpatient (CLI) | payer MEDICARE, MEDICAID, SELFPAY ==
--- NOTE | 2025-01-25 08:15 | RT.EKG_ITS ---
APPROVED REPORT Exam: Resting ECG Reason for Exam: afib Patient Location: O HR:72 bpm ECG Measurements Heart Rate 72 AXIS MS [id number] P [id number] QRSd 98 QRS 45 QT 427 T 47 QTc 468 Conclusion Atrial fibrillation...V-rate 57- 80, irreg A-activity Borderline low voltage, extremity leads...all extremity leads <0.6mV Artifact in lead(s) I,III,aVR,aVL,V1,V2,V3,V4,V5,V6
== END 2025-01-25 08:20 | disposition home or self-care (01) ==
LOC: DI.CARD 08:19
PROVIDERS: PCP Family Medicine; Visit Provider Registered Nurse
DX: I48.21 Permanent atrial fibrillation (principal)
CPT/HCPCS: 93010

== ENCOUNTER → 2025-01-25 13:55 | Outpatient (BNVA) | payer MEDICARE, MEDICAID, SELFPAY | PROVIDERS: PCP Family Medicine; Visit Provider Registered Nurse | DX: I48.21 Permanent atrial fibrillation (principal) | CPT/HCPCS: 93005; 99214 ==

== ENCOUNTER 2025-02-03 08:24 | Day surgery (SDC) | payer MEDICARE, MEDICAID, SELFPAY ==
--- NOTE | 2025-02-02 16:36 | PDOC.DSDIS_ITS ---
Date of service: 02/03/25 Discharge Plan Disposition Patient Disposition: Home Condition: Good Discharge Details Reason For Visit: Screening colonoscopy Attending Provider: Bernardo Correa Primary Care Provider: Tanner Saeed Home Meds and New Rx's Prescriptions: Continued metoprolol tartrate 25 mg tablet 25 mg PO BID Qty: 180 3RF Rx Instructions: Reduced dose due to orthostatic hypotn (Nov 20) (DME) lancets [FreeStyle Lancets] 28 gauge misc See Rx Instructions .Route Qty: 100 3RF Rx Instructions: Check Blood sugars twice a day, fasting and after supper. (DME) blood-glucose meter [FreeStyle Lite Meter] Kit See Rx Instructions .Route Qty: 1 0RF Rx Instructions: Check Blood sugar twice a day, fasting and after supper (DME) FreeStyle Lite Strips Strip See Rx Instructions .Route Qty: 100 3RF Rx Instructions: Check blood sugars twice a day, fasting and after supper (DME) pen needle, diabetic [Comfort EZ Pen [place]] 32 gauge x 5/16 needle See Rx Instructions .Route Qty: 100 1RF Rx Instructions: Administer insulin SQ daily . Tradjenta 5 mg tablet 5 mg PO DAILY Qty: 90 3RF Eliquis 5 mg tablet 5 mg PO BID Qty: 180 3RF Discontinued bisacodyl [Dulcolax (bisacodyl)] 5 mg tablet,delayed release (DR/EC) 5 mg PO ONCE Qty: 4 0RF Rx Instructions: Take per colonoscopy instructions provided by ordering providers office polyethylene glycol 3350 17 gram/dose powder 17 g PO ONCE Qty: 238 0RF Rx Instructions: Take per colonoscopy instructions provided by ordering providers office Discharge Instructions Additional Instructions: Jermain, is a pleasure meeting you today, and I hope you feel well after the colonoscopy. Everything went very smoothly. Your colonoscopy today was totally normal. With a negative screening colonoscopy today, my typical recommendation for patient like you would be to repeat your colonoscopy in 5 years, this is based on the polyps that you had removed previously. However, I should also disclose that routine screening colonoscopy is generally not recommended beyond the age of 85, this puts you quite close to that age. I will leave it up to you if you like to proceed with another one. If you need anything, or have any questions at all, please do not hesitate to ask. Otherwise, I would encourage you to stay in touch with your primary care physician, make an informed decision together when the time comes. 1. If tolerated, consume a soft, low fiber diet for 1-2 days. [address] not drive, drink alcohol, operate machinery, make critical decisions, or do activities that require coordination or balance for 24 hours. 3. Because air was put into your colon during the procedure, expelling air from your rectum (passing gas or farting) is normal. 4. You may not have a bowel movement for 1-3 days because of the colonoscopy prep. This is normal. 5. Go directly to the emergency room if you notice any of the following: Develop chills (warm to touch), or if you have a thermometer and your temperature is above 101 Difficulty breathing or difficultly swallowing Persistent vomiting Severe abdominal pain, other than gas cramps Severe chest pain Black, tarry stools Any bleeding ? exceeding one tablespoon 6. Call your physician if the site where your intravenous was started becomes red, swollen, painful, and warm to touch. 7. Your physician has reviewed your pre-procedure medications. Please continue to take those medications as previously ordered. You will be given specific information/education regarding any changes to your medications before leaving. Stand Alone Forms: Anesthesia Discharge Inst[facility] [place] ([facility]) Activity:: Activity as Tolerated Diet:: As Tolerated Discharge Orders Discharge Orders: Discharge Order (Routine); Ordered 02/02/25 Ordered By: Bernardo Correa DS: Diagnosis Discharge Diagnosis (1) Encounter for screening colonoscopy: Status: Acute Asessment and Plan: Negative screening colonoscopy
--- NOTE | 2025-02-02 16:37 | COLE_ITS ---
Date of service: 02/03/25 Time of Service: 10:29 Colonoscopy Report Date of procedure: 02/03/25 Pre-op diagnosis general: Screening colonoscopy Post-op diagnosis procedure note: other (Negative screening colonoscopy) Procedure: Colonoscopy Surgeon: Bernardo Correa Anesthesia Type: General:No Airway Estimated blood loss (mL): 0 Pathology: none sent Complications: None Disposition: same day Indications: Ramirez is a 79-year-old male with a history of adenomatous polyps who needs his next screening colonoscopy Prep: Miralax/Dulcolax Procedure Start Time: 10:03 Procedure End Time: 10:20 Retraction Time: 8 Findings: Negative screening colonoscopy Procedure Description: After the induction of anesthesia, and with the patient in left lateral decubitus position, I began by performing an external anorectal exam.? Perineum and skin were normal, as was the anal verge.? There was no evidence of external hemorrhoids.? Next, I performed a digital rectal exam.? I did not appreciate any abnormal findings.? Next, I advanced a colonoscope into the rectal vault.? I performed retroflexion.? This appeared normal.? Using insufflation, I then advanced the colonoscope beyond the rectal folds and into the sigmoid colon before advancing towards the cecum.? The quality of the prep was adequate.? The scope was noted to be in the cecum by identification of the ileocecal valve and appendiceal orifice.? I then began withdrawing the colonoscope using repeated irrigation as necessary for full evaluation of the colonic mucosa. ?Once the scope was withdrawn to the level of the rectum, great care was taken to examine portions of the rectal folds.? I saw no signs of tumors, polyps, or any other worrisome pathology. Finally, the scope was withdrawn and the patient was brought to the same-day surgery recovery unit as the anesthetic wore off. ?The findings and instructions were shared with the patient prior to discharge. [place] Bowel Prep [place] Bowel Prep Right Colon: 2 Left Colon: 2 Transverse Colon: 2 Total Score: 6
[2025-02-03 08:38] VITALS: BP 121/86; PULSE 71; RESP 16; TEMP 36.3; O2SAT 100
[2025-02-03] MEDS: Lactated Ringers 1,000 ML 80 ML IV (09:00)
--- NOTE | 2025-02-03 09:04 | ANES.PREOP_ITS ---
General Info Date of Service Date Performed: 02/03/25 Height: 6 ft 1 in Weight: 63.2 kg Body Mass Index (BMI): 18.3 Surgical Procedure: Operation Date: 02/03/25 09:50 Proposed Procedure Side Surgeon chung Correa MD Meds Allergies and Home Medications Allergies Allergy/AdvReac Type Severity Reaction Status Date / Time house dust Allergy Unknown congestion Verified 02/03/25 08:49 metformin AdvReac Intermediate Other (See Verified 02/03/25 08:49 Comment) Chlorpheniramine-Phenylpropan Allergy Unknown unknown Uncoded 02/03/25 08:49 Environmental Allergy Unknown congestion Uncoded 02/03/25 08:49 Hay Fever Allergy Unknown unknown Uncoded 02/03/25 08:49 Mold Allergy Unknown congestion Uncoded 02/03/25 08:49 Home Medication ?Medication ?Instructions ?Recorded metoprolol tartrate 25 mg tablet 25 mg PO BID #180 tabs 12/23/23 blood sugar diagnostic (FreeStyle #100 ea 04/22/24 Lite Strips) blood-glucose meter (FreeStyle #1 ea 04/22/24 Lite Meter kit) lancets 28 gauge (FreeStyle #100 ea 04/22/24 Lancets) pen needle, diabetic 32 gauge x #100 ea 04/22/24 5/16 (Comfort EZ Pen [place]) linagliptin 5 mg tablet (Tradjenta) 5 mg PO DAILY #90 tabs 11/25/24 apixaban 5 mg tablet (Eliquis) 5 mg PO BID #180 tabs 01/05/25 Current Visit Medications: Current Medications Generic Name Dose Route Start Last Admin Trade Name Freq PRN Reason Stop Dose Admin Ringer's Solution 1,000 mls @ 80 mls/hr 02/03/25 06:00 02/03/25 09:00 IV 02/03/25 23:59 80 mls/hr INFUSION AREN Administration IV Miscellaneous Supplies 1 each 02/03/25 06:00 Iv Access IV 02/03/25 23:59 DIRECTED AREN Ondansetron HCl 4 mg 02/02/25 16:38 Ondansetron 4 Mg/2 Ml Vial IVP 03/04/25 16:37 Q4H PRN PRN Nausea / Vomiting Sodium Chloride 0 ml 02/03/25 06:00 Normal Saline Flush 10 Ml Syr IV 02/03/25 23:59 PRN PRN Sodium Chloride 0 ml 02/03/25 06:00 Normal Saline 10 Ml Vial IJ 02/03/25 23:59 DIRECTED PRN Sterile Water 0 ml 02/03/25 06:00 Water,Injection,Sterile 10 Ml Vial IJ 02/03/25 23:59 DIRECTED PRN PFSH Active Problems Active Problems: Problem Status Onset Code Encounter for screening colonoscopy Acute Z12.11 Impacted cerumen, bilateral Acute H61.23 Degenerative disc disease at L5-S1 level Acute M51.379 Spinal stenosis at L4-L5 level Acute M48.061 Weight loss, unintentional Acute R63.4 Diabetes mellitus Chronic E11.9 Xerostomia Acute K11.7 Submandibular sialoadenitis Acute K11.20 Nodule of left lobe of thyroid gland Acute E04.1 Atrial fibrillation Chronic I48.91 Multiple thyroid nodules Acute E04.2 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 Blurry vision, left eye Acute H53.8 Cataract Chronic H26.9 Itching Acute L29.9 Small vessel disease, cerebrovascular Acute I67.9 Cerebrovascular disease Acute I67.9 Hypertension Chronic I10 Medical History Medical History Glaucoma (~2010) Serous retinal detachment s/p iridectomy, ~ 2009 Adenomatous polyp of colon Colonoscopy-2014 Colonoscopy-2019 Surgical History Surgical History History of tonsillectomy and adenoidectomy S/P iridectomy (~2009) Retinal detachment (~2009) H/O laser iridotomy (~2009) H/O colonoscopy (~08/2015) H/O colonoscopy (~09/2020) Tobacco Smoking/Tobacco Use Status: Never Passive smoking exposure: No Second hand exposure: No Alcohol Alcohol Intake: never Substance Use Substance use: Never Substance use type: does not use Vital Signs and Lab Results Vital Signs Most Recent Vital Signs in EMR: Most Recent Vital Signs Temp Pulse Resp BP Pulse Ox 36.3 C L 71 16 121/86 100 02/03/25 08:38 02/03/25 08:38 02/03/25 08:38 02/03/25 08:38 02/03/25 08:38 Lab Results Blood Type / Crossmatch: No Data to Display Complete Blood Count: No Data to Display Complete Metabolic Panel: No Data to Display Liver Function Panel: No Data to Display Coagulation Panel: No Data to Display Cardiac Panel: No Data to Display Arterial Blood Gas: No Data to Display Venous Blood Gas: No Data to Display Pancreas Panel: No Data to Display Thyroid Panel: No Data to Display Infectious Disease: No Data to Display Blood Cultures: No Data to Display Toxicology Panel: No Data to Display Imaging and Studies Imaging and Studies Study information below may be from another EMR and interpreted by another provider. Please see original notes in EMR for more complete details. EKG Summary: 01/25/25 Conclusion Atrial fibrillation...V-rate 57- 80, irreg A-activity Borderline low voltage, extremity leads...all extremity leads <0.6mV Anesthesia Assessment and Plan Anesthesia History Personal History: No History of Anesthesia Complications Family History: No Family History of Anesthesia Complications Exercise Tolerance Exercise Tolerance: Metabolic Equivalents<4 Pertinent Negatives Pertinent Negatives: No Symptoms of GERD, No Major Cardiovascular Symptoms or Complaints, No Major Pulmonary Symptoms or Complaints and No History of CVA/TIA Cardiac & Pulmonary Exam Cardiac Exam: Normal S1/S2 Heart Sounds (a fib) Pulmonary Exam: Clear Bilateral Breath Sounds Implantable Cardiac Device Does patient have a Pacemaker or an ICD?: No Airway Exam Known Difficult Airway: No Mallampati Class: 2 Mouth Opening: Normal (> 3cm) Thyromental Distance: Greater than 3 cm Neck Range of Motion: Full ROM Neck Circumference: Normal Teeth Condition: Normal Dentition ASA Classification ASA Score: ASA 3 Emergency Case?: No NPO Status NPO Status: NPO Clears >2 hours, Solids >8 hours Anesthesia Plan Resuscitation Status: Full Code Anesthesia Technique: General Anesthesia Airway Planned: Natural Airway Monitors Used: Standard Monitors
[2025-02-03 09:11] VITALS: BMI 18.3
[2025-02-03 10:27] VITALS: BP 122/67; PULSE 70; RESP 18; TEMP 36.2; O2SAT 100
--- NOTE | 2025-02-03 10:33 | W.ANESPOSTOP ---
Postoperative Evaluation Date, Time and Location Date Performed: 02/03/25 Time Performed: 10:34 Patient Location: Day Surgery Unit Vital Signs Most Recent Imported Vital Signs: Most Recent Vital Signs Temp Pulse Resp BP Pulse Ox 36.2 C L 70 18 122/67 100 02/03/25 10:27 02/03/25 10:27 02/03/25 10:27 02/03/25 10:27 02/03/25 10:27 Pain Score Most Recent Pain Score: Most Recent Pain Score Pain Level 0 02/03/25 10:27 Assessment Mental Status: Awake (Alert & Oriented to Patient Baseline) Airway and Respiratory Function: Patent airway with normal (patient baseline) respiratory exam Cardiovascular Function: Hemodynamically Stable Hydration Status: Adequately Hydrated Nausea & Vomiting: No Nausea or Vomiting Pain: Pt. Denies Any Pain Peripheral Nerve Block: Patient did not receive a nerve block
[2025-02-03 10:53] VITALS: BP 111/80; PULSE 58; RESP 16; TEMP 36.1; O2SAT 100
== END 2025-02-03 11:19 | disposition home or self-care (01) ==
LOC: SUR 08:25
PROVIDERS: PCP Family Medicine; Visit Provider Surgery
PROC: 0DJD8ZZ Inspection of Lower Intestinal Tract, Via Natural or Artificial Opening Endoscopic (ICD-10-PCS; CPT 45378; principal; 2025-02-03 09:45)
DX: Z12.11 Encounter for screening for malignant neoplasm of colon (principal); Z86.0101 Personal history of adenomatous and serrated colon polyps
CPT/HCPCS: G0105; J2003; J2371; J2704

== ENCOUNTER 2025-07-24 12:35 | Outpatient (REF) | payer MEDICARE, SELFPAY | END 2025-07-24 12:36 | disposition home or self-care (01) | LOC: LBN 12:35 | PROVIDERS: PCP Family Medicine; Visit Provider Family Medicine | DX: R35.0 Frequency of micturition (principal); M54.50 Low back pain, unspecified | CPT/HCPCS: 87086 ==